=== PATIENT | male | born 1985 | race Caucasian/White ===

== ENCOUNTER 2018-04-15 12:34 | Inpatient (IN) ==
[2018-04-15] MEDS ORDERED: Naloxone 0.4 MG/ML INJ IVP PRN (15:34)
--- NOTE | 2018-04-15 15:43 | Cardiothoracic H&P ---
Date of Encounter: 04/15/18 Time of Encounter: 15:41 Assessment and Plan (1) Acute pneumothorax Current Visit: Yes Status: Acute I have discussed the plan of care with the tranfering physician. I have reviewed the plan of care with the patient. Will obtain labs. Addressed chest tube management. History of Present Illness Chief complaint: SOB HPI: Mr. Granger is a 32 year old male who is being transfered to [facility] for recurrent pneumothorax in the last week associated with SOB and chest pain that have been resolved with chest tube placement. Past Med Surg Social Fam HX - Past Medical History Additional medical history: left pneumothorax - Past Surgical History Surgical History: no surgical history - Social History Smoking Status: Former smoker Packs per day: 13 pack years Alcohol use: occasionally Drug use: none All Systems Review: The remainder of the systems were reviewed and are negative - Respiratory Respiratory: cough, dyspnea - Musculoskeletal Musculoskeletal: other (mm pain at chest tube insertion site ) Physical Examination Vital Signs, Last 4 Hours Temp Pulse Resp BP Pulse Ox 04/15/18 15:15 98.1 F 85 15 126/79 98 General: Conversant, No Apparent Distress HEENT: Atraumatic, Normocephaly, Trachea midline Cardiac: Reg Rate and Rhythm, Normal S1 and S2, No Murmur Lungs: Normal Breath Sounds Neuro: Alert and responsive, No focal deficits noted, Cranial nerves intact Vascular: Normal capillary refill Abdomen: Soft, Non-tender Skin: No rashes noted on visualized skin, Other (several tattoos) Extremities: No Clubbing, No Cyanosis, No Edema, Normal Pulses
[2018-04-15] MEDS: *HR* HYDROcodone/Acet 5/325 mg TABLET PO PRN ×2 (16:54→21:46)
[2018-04-15 17:56] LABS: Basophils % 0.5 %; Eosinophils # 0.3 K/mcL (0.0-0.6); Eosinophils % 4.2 %; Hematocrit 40.8 % (37.5-50.1); Hemoglobin 13.8 g/dL (12.9-16.9); Immature Granulocytes % 0.2 % (0-4); Lymphocytes # 1.8 K/mcL (0.6-4.6); Lymphocytes % 22.3 %; Mean Corpuscular HGB Conc 33.8 g/dL (31.6-35.5); Mean Corpuscular Hemoglobin 30.1 pg (28.0-33.3); Mean Corpuscular Volume 89.1 fL (83.0-100.0); Mean Platelet Volume 10.4 fL (9.4-12.4); Monocytes # 0.4 K/mcL (0.0-1.3); Monocytes % 4.4 %; Neutrophils # 5.6 K/mcL (1.6-8.9); Platelet Count 255 K/mcL (140-400); Red Blood Count 4.58 M/mcL (4.19-5.50); Segmented Neutrophils % 68.4 %
[2018-04-15 18:04] LABS: Magnesium 1.9 mg/dL (1.6-2.6); Phosphorous 4.6 mg/dL (2.7-4.5)
[2018-04-15 18:05] LABS: BUN/Creatinine Ratio 9 (6-26); Blood Urea Nitrogen 10 mg/dL (6-20); Calcium 9.5 mg/dL (8.6-10.3); Carbon Dioxide 31 mEq/L (23-29); Chloride 99 mEq/L (98-107); Glucose 191 mg/dL (70-105); Osmolality,Calculated 286 (280-300); Potassium 4.1 mEq/L (3.5-5.1); Sodium 136 mEq/L (136-145); eGFR For Non-African Americans > 60 (> 60)
[2018-04-15] MEDS: Gabapentin 300 MG CAPSULE PO SCH (20:22)
[2018-04-16] MEDS: *HR* HYDROcodone/Acet 5/325 mg TABLET PO PRN ×4 (05:41→21:19)
--- NOTE | 2018-04-16 07:50 | Cardiothoracic Progress Note ---
Date of Encounter: 04/16/18 Time of Encounter: 07:48 - Assessment and plan (1) Acute pneumothorax Current Visit: Yes Status: Acute I have completed preop orders. - Subjective Interval history: no new issues overnight Vital Signs, Last 4 Hours Temp Pulse Resp BP Pulse Ox 04/16/18 07:22 96.2 F L 77 19 118/90 98 Clinical Data, last 8 Hours Output, Chest Tube Drainage 0 Amount [Left Anterior Chest #1 ] Output, Chest Tube Drainage 0 Amount [Left Anterior Chest #1 ] Output, Urine Amount 0 Output, Urine Amount 0 Weight 04/14/18 04/15/18 04/16/18 23:59 23:59 23:59 Weight 69.1 kg 70.3 kg - Physical Examination General: Conversant, No Apparent Distress Cardiac: Reg Rate and Rhythm, Normal S1 and S2, No Murmur Incision: No signs of infection, Dry/intact dressing Lungs: Decreased breath sounds Neuro: Alert and responsive, No focal deficits noted Abdomen: Soft, Non-tender - Labs 04/15/18 17:33 04/15/18 17:33 Lab Results, Last 24 hours 04/15/18 04/15/18 04/15/18 17:33 17:33 17:33 WBC 8.1 Hgb 13.8 Hct 40.8 Plt Count 255 Sodium 136 Potassium 4.1 Chloride 99 Carbon Dioxide 31 H BUN 10 Creatinine 1.07 Glucose 191 H Calcium 9.5 Magnesium 1.9 Consult Discharge Plan - Plan Referrals: NONE,PCP [Primary Care Provider] -
[2018-04-16] MEDS: Gabapentin 300 MG CAPSULE PO SCH ×3 (08:57→21:19)
--- NOTE | 2018-04-16 19:16 | Anesthesia Evaluation PreOp ---
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 BALANCE History: Denies Any Significant HX Other Medical History: Denies Any Significant HX Anesthesia History: No Prior Anesthetic Complications, Past Anesthesia (none) Alcohol Use: occasionally Drug use: none Medications and Allergies No Known Home Drugs 04/16/18 [History] Allergy/AdvReac Type Severity Reaction Status Date / Time bee venom protein (honey bee) Allergy throat Verified 04/15/18 16:48 swelling - Meds/Allergy Pre-op Review Medications Reviewed: Yes Allergies Reviewed: Yes Beta Blockers on Current Med List: No Anesthesia Results - Labs 04/15/18 17:33 04/15/18 17:33 Anesthesia Exam Vital Signs/O2 Sat, Most Current Temp Pulse Resp BP Pulse Ox 98.9 F 83 19 109/61 98 04/16/18 15:59 04/16/18 15:59 04/16/18 15:59 04/16/18 15:59 04/16/18 15:59 NPO (# of Hours): After Midnight Pain Scale: 0 Pain Scale Used: Numeric (1 - 10) - HEENT Pupil (Motor): Pupils equal, EOMI Mallampati: II Teeth: Poor dentition Oral Opening: Greater than 3 - POISER BALANCE LOC: Oriented POISER BALANCE Motor: Normal RUE, Normal LUE, Normal RLE, Normal LLE, Normal Face POISER BALANCE Sensory: Normal: RUE, LUE, RLE, LLE, Face - Cardiac Rhythm: Regular Murmur: None JVD: No Carotid Bruit: No - Pulmonary Breath Sounds: bilateral Clear Respiratory Effort: Symmetrical Anesthesia Assess/Plan ASA Score: 2 Level of consciousness: Cooperative Anesthetic Plan: General, Epidural Autologous Blood: Yes Monitoring Plan: Standard Monitors Recovery Plan: PACU
[2018-04-17] MEDS: *HR* HYDROcodone/Acet 5/325 mg TABLET PO PRN ×3 (04:39→23:17)
[2018-04-17 05:08] LABS: Basophils # 0.1 K/mcL (0.0-0.2); Basophils % 0.8 %; Eosinophils # 0.4 K/mcL (0.0-0.6); Hematocrit 42.7 % (37.5-50.1); Hemoglobin 14.4 g/dL (12.9-16.9); Immature Granulocytes % 0.2 % (0-4); Lymphocytes % 30.9 %; Mean Corpuscular HGB Conc 33.7 g/dL (31.6-35.5); Mean Corpuscular Hemoglobin 30.1 pg (28.0-33.3); Mean Corpuscular Volume 89.3 fL (83.0-100.0); Mean Platelet Volume 10.3 fL (9.4-12.4); Monocytes # 0.6 K/mcL (0.0-1.3); Monocytes % 8.8 %; Neutrophils # 3.5 K/mcL (1.6-8.9); Platelet Count 255 K/mcL (140-400); Red Blood Count 4.78 M/mcL (4.19-5.50); Segmented Neutrophils % 53.3 %
[2018-04-17 05:26] LABS: BUN/Creatinine Ratio 14 (6-26); Blood Urea Nitrogen 13 mg/dL (6-20); Calcium 9.6 mg/dL (8.6-10.3); Carbon Dioxide 29 mEq/L (23-29); Chloride 103 mEq/L (98-107); Glucose 100 mg/dL (70-105); Osmolality,Calculated 288 (280-300); Potassium 4.3 mEq/L (3.5-5.1); Sodium 139 mEq/L (136-145); eGFR For Non-African Americans > 60 (> 60)
[2018-04-17] MEDS: Gabapentin 300 MG CAPSULE PO SCH ×3 (08:46→23:18)
[2018-04-17 10:14] LABS: Basophils % 0.7 %; Eosinophils # 0.3 K/mcL (0.0-0.6); Hemoglobin 14.3 g/dL (12.9-16.9); Immature Granulocytes % 0.2 % (0-4); Lymphocytes # 1.5 K/mcL (0.6-4.6); Lymphocytes % 27.2 %; Mean Corpuscular HGB Conc 33.3 g/dL (31.6-35.5); Mean Corpuscular Hemoglobin 29.7 pg (28.0-33.3); Mean Corpuscular Volume 89.2 fL (83.0-100.0); Mean Platelet Volume 9.9 fL (9.4-12.4); Monocytes # 0.4 K/mcL (0.0-1.3); Monocytes % 7.5 %; Neutrophils # 3.2 K/mcL (1.6-8.9); Platelet Count 252 K/mcL (140-400); Red Blood Count 4.82 M/mcL (4.19-5.50); Segmented Neutrophils % 58.4 %
[2018-04-17] MEDS ORDERED: *HR* Propofol 200 MG/20 ML VIAL IVP ONE (11:10)
[2018-04-17] MEDS ORDERED: *HR* Midazolam HCl 2 MG/2 ML VIAL ONE (11:10)
[2018-04-17] MEDS ORDERED: *HR* FentaNYL (PF) 100 MCG/2 ML VIAL ONE ×3 (11:10→14:08)
[2018-04-17] MEDS ORDERED: *HR* Rocuronium Bromide 50 MG/5 ML VIAL ONE (11:14)
[2018-04-17] MEDS ORDERED: Lidocaine -MPF 2% 2 ML VIAL ONE (11:14)
[2018-04-17] MEDS ORDERED: Lidocaine -MPF 4% 5 ML AMPUL ONE (11:14)
[2018-04-17] MEDS ORDERED: Ondansetron 4 MG/2 ML VIAL ONE (11:14)
[2018-04-17] MEDS ORDERED: SODIUM CHLORIDE 0.9% IX ONE (11:30)
[2018-04-17] MEDS ORDERED: DOXYCYCLINE IX ONE ×2 (11:30)
[2018-04-17] MEDS ORDERED: SODIUM CHLORIDE IX ONE (11:30)
[2018-04-17] MEDS ORDERED: TALC (Sterile Pwd) 4 GM VIAL IX ONE (11:30)
[2018-04-17] MEDS ORDERED: Acetaminophen IV 1,000 MG/100 ML INFUS..BTL ONE (12:40)
[2018-04-17] MEDS ORDERED: EPHEDrine 50 MG/ML VIAL ONE (13:12)
[2018-04-17] MEDS ORDERED: Neostigmine Methylsulfate 3 MG/3 ML SYRINGE ONE (13:21)
--- NOTE | 2018-04-17 13:53 | Operative Note ---
Date of procedure: 04/17/18 Pre-op diagnosis: pneumothorax Post-op diagnosis: same Procedure: bronchoscopy, left vats wedge resection upper and lower lobes, mechanical and 800mg doxy pleurodesis Anesthesia: RONNIE Surgeon: Marvin Pepper Was there an store administrative assistant present: No Estimated blood loss (cc): 5 Specimen: wedge resection upper and lower lobes Condition: stable Disposition: PACU Procedure in Detail: Patient was brought to the operating room and placed on the operating room table in the supine position with perioperative antibiotics and compressive devices on bilateral lower extremities patient underwent general anesthesia flexible bronchoscopy demonstrated normal pink mucosa throughout the tracheobronchial tree Seldinger technique was used to place the double-lumen endotracheal tube in the left mainstem bronchus patient was then positioned on the operating room table in the right lateral decubitus position with care to pad all pressure points the pigtail catheter was removed he was prepped draped in the usual sterile fashion 3 thoracoscopy ports were placed wedge resections of the left upper lobe and left lower lobe performed intercostal nerve blocks performed. A mechanical pleurodesis and then 800 mg doxycycline chemical pleurodesis performed 28-Indonesian chest tube placed through the most anterior thoracoscopy incision and secured in place with a #2-0 Ethibond suture the remaining incisions were closed with 0 Vicryl and 4-0 Monocryl subcuticular stitches. Dressing consisting of Steri-Strips and sterile gauze. Patient was extubated and taken to the recovery room breathing spontaneously and hemodynamically stable
[2018-04-17] MEDS: *HR* FentaNYL (PF) 100 MCG/2 ML VIAL IVP PRN ×2 (14:09→14:17)
[2018-04-17] MEDS ORDERED: *HR* OxyCODONE Immed Rel 5 MG TABLET PO PRN (14:10)
[2018-04-17] MEDS ORDERED: *HR* Promethazine 25 MG/ML VIAL IVP PRN (14:10)
[2018-04-17] MEDS ORDERED: *HR* HYDROmorphone (PF) 1 MG/ML SYRINGE IVP PRN (14:10)
[2018-04-17] MEDS ORDERED: Ondansetron 4 MG/2 ML VIAL IVP ONE (14:10)
[2018-04-17] MEDS ORDERED: Ketorolac 30 MG/ML VIAL IVP ONE (14:16)
--- NOTE | 2018-04-17 14:33 | Anesthesia Evaluation Post Op ---
Date of Encounter: 04/17/18 Time of Encounter: 14:32 - Vital Signs Vital Signs: Vital Signs/O2 Sat/Glucose, Most Recent Temp Pulse Resp BP Pulse Ox 99.5 F 101 18 154/99 96 04/17/18 14:24 04/17/18 14:24 04/17/18 14:24 04/17/18 14:24 04/17/18 14:24 - Lungs Lungs: Clear Ascult./Percussion - Airway Airway: Non-obstructed - Cardiovascular Regular Rate - Mental Status Mental Status: Alert & Oriented, Answers Appropriately - Pain Pain Scale: 2 - Nausea Vomiting Nausea Vomiting: Not Present - Hydration Hydration: NPO - Discharge PostOp Status: Transfer Patient to floor
[2018-04-17] MEDS ORDERED: *HR* Succinylcholine 200 MG/10 ML VIAL IVP ONE (17:08)
[2018-04-17] MEDS: Ketorolac 15 MG/ML VIAL IVP SCH (19:11)
[2018-04-18] MEDS: Ketorolac 15 MG/ML VIAL IVP SCH ×4 (01:50→19:47)
[2018-04-18] MEDS: *HR* HYDROcodone/Acet 5/325 mg TABLET PO PRN ×3 (09:23→23:11)
[2018-04-18] MEDS: Gabapentin 300 MG CAPSULE PO SCH ×3 (09:23→21:09)
--- NOTE | 2018-04-18 09:44 | Cardiothoracic Progress Note ---
Date of Encounter: 04/18/18 Time of Encounter: 09:42 - Assessment and plan (1) Acute pneumothorax Current Visit: Yes Status: Acute clamp the chest tube at midnight tonight. stop oxygen. encourage ambulation.. - Subjective Interval history: postoperative day 1 Vital Signs, Last 4 Hours Temp Pulse Resp BP Pulse Ox 04/18/18 07:26 98.8 F 92 16 135/88 98 Oxgyen Flow Rate Oxygen Flow Rate (LPM) 2.5 Clinical Data, last 8 Hours Output, Chest Tube Drainage 0 Amount [Left Mid-Axillary Chest #1] Output, Urine Amount 0 Output, Urine Amount 0 Weight 04/16/18 04/17/18 04/18/18 23:59 23:59 23:59 Weight 70.3 kg 69.4 kg 70.1 kg - Physical Examination General: Conversant, No Apparent Distress HEENT: Atraumatic Cardiac: Reg Rate and Rhythm, Normal S1 and S2, No Murmur Chest tubes: Other (no leak with cough ) Lungs: Decreased breath sounds Neuro: Alert and responsive, No focal deficits noted Abdomen: Soft, Non-tender - Labs 04/17/18 09:56 04/17/18 04:24 Lab Results, Last 24 hours 04/17/18 09:56 WBC 5.5 Hgb 14.3 Hct 43.0 Plt Count 252 - Imaging Chest Xray: image reviewed Consult Discharge Plan - Plan Referrals: NONE,PCP [Primary Care Provider] -
[2018-04-19] MEDS: Ketorolac 15 MG/ML VIAL IVP SCH ×3 (01:05→12:26)
--- NOTE | 2018-04-19 09:04 | Cardiothoracic Progress Note ---
Date of Encounter: 04/19/18 Time of Encounter: 09:02 - Assessment and plan (1) Acute pneumothorax Current Visit: Yes Status: Acute The assessment and plan as outlined above was discussed with the patient and/or family members who expressed understanding and agreement. All questions were answered. The chest tube was removed. Chest x-ray done after chest tube removal revealed what I felt to be a moderate pneumothorax. His O2 saturation is 96 on room air and he is not dyspneic and has no chest pain. We will check another chest x-ray at noon and if this looks good may discharge him today. I told him to return to the emergency room for any chest pain or shortness of breath. - Subjective Interval history: The patient has no complaints and is anxious to go home. The chest tube has been clamped since midnight and his O2 saturation is 97% on room air. Vital Signs, Last 4 Hours Temp Pulse Resp BP Pulse Ox 04/19/18 07:18 98.1 F 92 18 130/81 96 04/19/18 06:05 121/72 Oxgyen Flow Rate Oxygen Flow Rate (LPM) 2.5 Clinical Data, last 8 Hours Output, Urine Amount 1,000 Weight 04/17/18 04/18/18 04/19/18 23:59 23:59 23:59 Weight 69.4 kg 70.1 kg 70.5 kg Lungs are clear to percussion and auscultation. The chest tube has no air leak and has minimal drainage with the clamp removed. All incisions are healing well without signs of infection. - Labs 04/17/18 09:56 04/17/18 04:24 Consult Discharge Plan - Plan Referrals: NONE,PCP [Primary Care Provider] -
[2018-04-19] MEDS: Gabapentin 300 MG CAPSULE PO SCH (09:28)
[2018-04-19 11:39] VITALS: BP 119/84
--- NOTE | 2018-04-19 12:36 | Event Note ---
Date of Encounter: 04/19/18 Time of Encounter: 12:35 The patient had a repeat chest x-ray which reveals a moderate pneumothorax which has been stable since the prior chest x-ray. His O2 saturation is 97 on room air and he is not dyspneic. Therefore, I will discharge him. He was told to return to emergency room if he develops shortness of breath or chest pain. We will see him back in the office on April 23 with a chest x-ray PA and lateral prior to arrival.
--- NOTE | 2018-04-19 12:42 | Discharge Summary ---
Orders not resulted at time of discharge: Pending orders 04/17/18 13:31 Surgical Pathology [PTH] Routine 04/20/18 08:00 Chest Xray, 1 view [XR chest 1V] [XR] DAILY Date of Encounter: 04/19/18 Time of Encounter: 12:39 - Discharge Diagnosis (1) Acute pneumothorax Priority: Primary Status: Acute - Hospital Course Hospital course: Mr. Granger is a 32 year old male The patient is a 32-year-old gentleman who had a chest tube placed for recurrent left pneumothorax. He had been a smoker, but had quit in the past. On 04/17/2018, Dr. Pepper took the patient to the operating room for a left VATS wedge resection of the left upper and left lower lobes and pleurodesis with doxycycline. The patient tolerated this procedure well. On April 19, his chest tube had no air leak and minimal drainage and was removed. Chest x-ray done after this revealed a moderate left pneumothorax. We waited several hours and a repeat chest x-ray revealed that this was stable. His O2 saturation was 97 on room air and he was not dyspneic. He was discharged to home. At the time of discharge, he was afebrile. Lungs were clear to percussion and auscultation. All incisions were healing well without signs of infection and his O2 saturation was 97% on room air. The only medication was [place] for chest pain. I did check the [place] automated Rx reporting system. He was postoperative and was given a 5 day supply. Appropriate precautions were given. He was to return to his previous and regular diet. He was told to stay off work until he sees Dr. Pepper in the office. He is to return to our office on 04/23/2018 with a chest x-ray PA and lateral prior to arrival. He was to go to the emergency room sooner for any chest pain or shortness of breath. - Time Spent with Patient Total time spent providing and/or coordinating discharge services: - Discharge Medications Prescriptions: HYDROcodone/Acet 5/325 mg [[place] 5-325 mg] 1 tab PO Q4HR PRN 5 Days #20 tablet PRN Reason: Pain Home Medications: HYDROcodone/Acet 5/325 mg [[place] 5-325 mg] 1 tab PO Q4HR PRN 5 Days #20 tablet 1 06/20/17 [Rx] Allergies/Adverse Reactions: Allergy/AdvReac Type Severity Reaction Status Date / Time bee venom protein (honey bee) Allergy throat Verified 04/15/18 16:48 swelling Date of admission: 04/15/18 14:55 Primary care physician: PCP NONE Consults: 04/15/18 15:48 Consult to [place] [CONS] Routine Reason for SW Consult: financial support Procedure(s) Performed: 04/17/2018. Left thoracoscopy with wedge excision of left upper and left lower lobes and pleurodesis with doxycycline. Discharging clinician: Jas Stoddard Anticipated date of discharge: 04/19/18 Physical Examination Vital Signs, Last 4 Hours Temp Pulse Resp BP Pulse Ox 04/19/18 11:34 97.8 F 102 16 119/84 97 - Patient Status Disposition: Home, Self-Care Condition: Good Functional capacity at discharge: independent ambulation Overall status at discharge: patient is progressing back to baseline - Discharge Instructions Follow Up With: NONE,PCP [Primary Care Provider] -
== END 2018-04-19 13:51 | disposition home or self-care (01) | DRG 165 ==
LOC: 2NENU 14:55
PROVIDERS: ADMIT Thoracic Surgery (Cardiothoracic Vascular Surgery); ATTEND Thoracic Surgery (Cardiothoracic Vascular Surgery)

== ENCOUNTER 2018-12-25 13:00 | Inpatient (IN) ==
--- NOTE | 2018-12-25 08:02 | Anesthesia Evaluation PreOp ---
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 Any Significant HX Other Medical History: Denies Any Significant HX Anesthesia History: No Prior Anesthetic Complications, Past Anesthesia (L thoracoscopy) Alcohol Use: occasionally Drug use: none Medications and Allergies Allergy/AdvReac Type Severity Reaction Status Date / Time bee venom protein (honey bee) Allergy throat Verified 12/25/18 13:25 swelling - Meds/Allergy Pre-op Review Medications Reviewed: Yes Allergies Reviewed: Yes Beta Blockers on Current Med List: No Anesthesia Results - Labs Laboratory Tests 12/24/18 12/24/18 12/24/18 13:09 13:09 13:09 Hgb 14.5 Hct 43.2 Plt Count 283 PT 12.1 APTT 34.9 Sodium 136 Potassium 4.2 Chloride 100 Carbon Dioxide 30 H BUN 9 Creatinine 1.02 Anesthesia Exam O2 Sat Height 1.75 m Weight 69.853 kg O2 Sat by Pulse Oximetry 98 Vital Signs Temp Pulse Resp BP Pulse Ox 98.3 F 89 18 117/79 98 12/25/18 13:14 12/25/18 13:14 12/25/18 13:14 12/25/18 13:14 12/25/18 13:14 - HEENT Pupil (Motor): Pupils equal, EOMI Mallampati: II Teeth: Missing, Poor dentition (nothing loose at this time) Oral Opening: Greater than 3 - INDUSTRIAL TECHNOLOGY TEACHER LOC: Oriented INDUSTRIAL TECHNOLOGY TEACHER Motor: Normal RUE, Normal LUE, Normal RLE, Normal LLE, Normal Face INDUSTRIAL TECHNOLOGY TEACHER Sensory: Normal: RUE, LUE, RLE, LLE, Face - Cardiac Rhythm: Regular Murmur: None JVD: No - Pulmonary Breath Sounds: bilateral Clear Respiratory Effort: Symmetrical Anesthesia Assess/Plan ASA Score: 2 Level of consciousness: Cooperative, Oriented Monitoring Plan: Standard Monitors Recovery Plan: PACU
[~2018-12-25 13:00] MED LIST: Talc (sterile) 4 GM, 0.9 % Sodium Chloride 50 ML, Syringe CATH TIP 1 EACH IX ONE
[2018-12-25] MEDS ORDERED: CeFAZolin Syr 2,000MG/20 ML 2,000 MG/20 ML SYRINGE IVPB ONE (13:17)
[2018-12-25] MEDS ORDERED: Ringers Solution, Lactated 1,000 ML IVC SCH (13:30)
[2018-12-25] MEDS ORDERED: Albuterol 2.5 MG/3 ML NEBULIZER IH ONE (13:47)
[2018-12-25] MEDS ORDERED: Ondansetron ODT 4 MG TAB.RAPDIS SL ONE (13:55)
[2018-12-25] MEDS ORDERED: diazePAM 5 MG TABLET PO ONE (13:55)
[2018-12-25] MEDS ORDERED: Acetaminophen IV 1,000 MG/100 ML INFUS..BTL IVPB ONE (13:56)
[2018-12-25] MEDS ORDERED: *HR* OxyCODONE Immed Rel 5 MG TABLET PO PRN (13:56)
[2018-12-25] MEDS ORDERED: *HR* Meperidine 25 MG/ML SYRINGE IVP PRN (13:56)
[2018-12-25] MEDS ORDERED: *HR* Promethazine 25 MG/ML VIAL IVP PRN (13:56)
--- NOTE | 2018-12-25 13:58 | History & Physical Report ---
Date of Encounter: 12/25/18 Time of Encounter: 13:58 24 Hour HP Update - Instructions Instructions: If the History and Physical is less than 30 days old and was completed prior to A.M. admission and or procedure and has NOT been updated on calendar day of procedure please complete this update prior to performing procedure. - Update Patient reports changes in Medical Condition: No Changes in examination, assessment, or condition: No Changes in Medication: No Preop tests/diagnostics Reviewed: Yes Pre-Op MRSA Screen: Negative Surgery Remains Indicated: Yes Consent for Planned Operative Procedure(s) Verified: Yes - Pre-Operative Checklist Preoperative Checklist Indicated: Yes Prophylactic Antibiotic Ordered: Yes Home Medications Include Beta Latisha: No Beta Latisha Taken Today (Day of Surgery): No Beta Latisha Taken Yesterday (Day Prior to Surgery): No Is VTE Prophylaxis Indicated?: Yes
[2018-12-25] MEDS ORDERED: CATH TIP IX ONE (14:00)
[2018-12-25] MEDS ORDERED: DOXYCYCLINE IX ONE (14:00)
[2018-12-25] MEDS ORDERED: SODIUM CHLORIDE IX ONE (14:00)
[2018-12-25] MEDS ORDERED: *HR* HYDROMORPHONE 2 MG/ML VIAL ONE (14:02)
[2018-12-25] MEDS ORDERED: *HR* Midazolam HCl 2 MG/2 ML VIAL ONE (14:02)
[2018-12-25] MEDS ORDERED: Lidocaine HCL 4 ML Topical Solution (Laryng-O-Jet Kit Sterile Pak) TP ONE (14:06)
[2018-12-25] MEDS ORDERED: *HR* Propofol 200 MG/20 ML VIAL IVP ONE (14:10)
[2018-12-25] MEDS ORDERED: *HR* FentaNYL (PF) 100 MCG/2 ML VIAL ONE (14:10)
[2018-12-25] MEDS ORDERED: Dexamethasone 4 MG/ML VIAL ONE (14:13)
[2018-12-25] MEDS ORDERED: Lidocaine -MPF 2% 2 ML VIAL ONE (14:13)
[2018-12-25] MEDS ORDERED: *HR* Succinylcholine 200 MG/10 ML VIAL IVP ONE (14:13)
[2018-12-25] MEDS ORDERED: *HR* Rocuronium Bromide 50 MG/5 ML VIAL ONE (14:13)
[2018-12-25] MEDS ORDERED: Ondansetron 4 MG/2 ML VIAL ONE (15:39)
--- NOTE | 2018-12-25 16:05 | Operative Note ---
Date of procedure: 12/25/18 Pre-op diagnosis: j93.83 Post-op diagnosis: same Procedure: bronchoscopy, robotic vats wedge resection and pleurodesis Anesthesia: GETA Local Anesthetics: 0.5% Sensorcaine HCL SubQ (cc) Surgeon: Marvin Ppeper Was there an doctor assistant present: No Estimated blood loss (cc): 2 Specimen: wedge resection upper lobe Condition: stable Disposition: PACU Procedure in Detail: Patient was brought to the operating room and placed on the operating table in the supine position. After undergoing general anesthesia with sequential compressive devices on bilateral lower extremities and perioperative antibiotics, staging bronchoscopy was performed for multiple bilateral pneumothoraces at the patient has had in the past as well as currently. There was no trauma to the main tracheobronchial tree mainstem or subcutaneous lobar bronchi. The previous chest tube placed by an outside facility was removed. The patient was prepped and draped in the usual sterile fashion. Thoracoscopy ports were placed. The da Lisa robot was docked. 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 A chemical pleurodesis with doxycycline was performed. Nerve blocks performed. 28-Wolof chest tube placed through the most anterior thoracoscopy incision. It was secured into place with a 2 Ethibond suture. The da Lisa robot was de- docked. The remaining incisions closed with 0 Vicryl and a 4-0 Monocryl subcuticular stitch with dressings consisting of Steri-Strips and sterile gauze. Patient was extubated and taken to the recovery room.
[2018-12-25] MEDS: *HR* HYDROmorphone (PF) 1 MG/ML SYRINGE IVP PRN ×4 (16:15→16:40)
[2018-12-25] MEDS ORDERED: Naloxone 0.4 MG/ML INJ IVP PRN (17:18)
[2018-12-25] MEDS ORDERED: Ondansetron 4 MG/2 ML VIAL IVP PRN (17:18)
[2018-12-25] MEDS: Ipratropium/Albuterol Neb 3 ML IH SCH ×2 (18:05→20:27)
[2018-12-25] MEDS: 0.9 % Sodium Chloride 1,000 ML IVC SCH (18:25)
[2018-12-25] MEDS: Ketorolac 15 MG/ML VIAL IVP SCH ×2 (18:25→23:56)
[2018-12-25] MEDS: Sennosides/Docusate Sodium TABLET PO SCH (20:18)
[2018-12-25] MEDS: Gabapentin 300 MG CAPSULE PO SCH (20:18)
[2018-12-25] MEDS: Famotidine 20 MG TABLET PO SCH (20:18)
[2018-12-25] MEDS: *HR* Heparin 5,000 UNIT/ML VIAL SQ SCH (20:18)
[2018-12-26] MEDS: Ipratropium/Albuterol Neb 3 ML IH SCH ×7 (00:29→23:49)
[2018-12-26] MEDS: *HR* Heparin 5,000 UNIT/ML VIAL SQ SCH ×3 (04:42→21:15)
[2018-12-26] MEDS: *HR* HYDROcodone/Acet 5/325 mg TABLET PO PRN ×2 (04:42→07:54)
[2018-12-26] MEDS: Ketorolac 15 MG/ML VIAL IVP SCH ×3 (05:33→18:16)
[2018-12-26 05:36] LABS: Hematocrit 42.7 % (37.5-50.1); Hemoglobin 14.3 g/dL (12.9-16.9); Mean Corpuscular HGB Conc 33.5 g/dL (31.6-35.5); Mean Corpuscular Hemoglobin 30.2 pg (28.0-33.3); Mean Corpuscular Volume 90.3 fL (83.0-100.0); Mean Platelet Volume 10.1 fL (9.4-12.4); Platelet Count 319 K/mcL (140-400); Red Blood Count 4.73 M/mcL (4.19-5.50); Red Cell Distribution Width 12.8 % (11.5-14.5); White Blood Count 12.8 K/mcL (4.3-11.1)
[2018-12-26 05:56] LABS: BUN/Creatinine Ratio 15 (6-26); Blood Urea Nitrogen 11 mg/dL (6-20); Calcium 9.2 mg/dL (8.6-10.3); Carbon Dioxide 24 mEq/L (23-29); Chloride 102 mEq/L (98-107); Glucose 144 mg/dL (70-105); Osmolality,Calculated 286 (280-300); Potassium 4.7 mEq/L (3.5-5.1); Sodium 137 mEq/L (136-145); eGFR For African Americans > 60 (> 60); eGFR For Non-African Americans > 60 (> 60)
[2018-12-26] MEDS: Gabapentin 300 MG CAPSULE PO SCH ×3 (07:54→21:15)
[2018-12-26] MEDS: Sennosides/Docusate Sodium TABLET PO SCH ×2 (07:54→21:15)
[2018-12-26] MEDS: Famotidine 20 MG TABLET PO SCH ×2 (07:54→21:15)
[2018-12-26] MEDS: 0.9 % Sodium Chloride 1,000 ML IVC SCH (07:55)
--- NOTE | 2018-12-26 08:46 | Cardiothoracic Progress Note ---
Date of Encounter: 12/26/18 Time of Encounter: 08:45 - Assessment and plan (1) Acute pneumothorax Current Visit: No Status: Acute The assessment and plan as outlined above was discussed with the patient and/or family members who expressed understanding and agreement. All questions were answered. rounded wiht nurse. stop ivf. increase chest tube suction . no other changes. Vital Signs, Last 4 Hours Temp Pulse Resp BP Pulse Ox 12/26/18 07:27 98.2 F 95 22 126/79 100 12/26/18 07:26 17 97 Oxgyen Flow Rate Oxygen Flow Rate (LPM) 2 Clinical Data, last 8 Hours Output, Chest Tube Drainage 4 Amount [Left Anterior Chest #1 ] Weight 12/24/18 12/25/18 12/26/18 23:59 23:59 23:59 Weight 69.853 kg 70.7 kg - Physical Examination General: Conversant, No Apparent Distress, Well developed, Well nourished HEENT: Atraumatic, Normocephaly Cardiac: Reg Rate and Rhythm, Normal S1 and S2 Incision: No signs of infection, Dry/intact dressing Chest tubes: Minimal drainage, Air leak Lungs: Normal Breath Sounds Neuro: Alert and responsive, No focal deficits noted, Cranial nerves intact - Labs 12/26/18 05:01 12/26/18 05:01 Lab Results, Last 24 hours 12/26/18 12/26/18 05:01 05:01 WBC 12.8 H Hgb 14.3 Hct 42.7 Plt Count 319 Sodium 137 Potassium 4.7 Chloride 102 Carbon Dioxide 24 BUN 11 Creatinine 0.74 Glucose 144 H Calcium 9.2 - Imaging Chest Xray: image reviewed Consult Discharge Plan - Plan Referrals: Marvin Pepper MD [Partnered Physician] - NONE,PCP [Primary Care Provider] - (Patient doesn't want me to find him a PCP)
[2018-12-27] MEDS: Ketorolac 15 MG/ML VIAL IVP SCH ×5 (00:20→22:54)
[2018-12-27] MEDS: Ipratropium/Albuterol Neb 3 ML IH SCH ×5 (04:13→20:23)
[2018-12-27] MEDS: *HR* Heparin 5,000 UNIT/ML VIAL SQ SCH ×3 (04:51→20:48)
[2018-12-27] MEDS: *HR* HYDROcodone/Acet 5/325 mg TABLET PO PRN ×5 (05:38→22:54)
--- NOTE | 2018-12-27 08:21 | Cardiothoracic Progress Note ---
Date of Encounter: 12/27/18 Time of Encounter: 08:05 - Assessment and plan (1) Acute pneumothorax Current Visit: No Status: Acute The patient is recovering well from his right robotic apical bleb resection and chemical pleurodesis. He has a persistent air leak on suction. The chest x-ray shows improvement in his lung aeration and a decrease in the right apical pneumothorax. Chest tube will remain on suction; however, the patient may ambulate in the hallways off suction 3 times per day. The assessment and plan as outlined above was discussed with the patient and/or family members who expressed understanding and agreement. All questions were answered. - Subjective Procedure(s) Performed: POD#2 S/P Right robotic apical bleb resection and chemical pleurodesis Interval history: The patient remained hemodynamic stable overnight. He is resting comfortably in his hospital bed. He has no complaints. Vital Signs, Last 4 Hours Temp Pulse Resp BP Pulse Ox 12/27/18 07:31 18 97 12/27/18 07:26 98.0 F 90 18 116/80 97 Oxgyen Flow Rate Oxygen Flow Rate (LPM) 2 Clinical Data, last 8 Hours Output, Chest Tube Drainage 50 Amount [Left Anterior Chest #1 ] Output, Chest Tube Drainage 170 Amount [Left Anterior Chest #1 ] Weight 12/25/18 12/26/18 12/27/18 23:59 23:59 23:59 Weight 69.853 kg 70.7 kg 71.7 kg - Physical Examination General: Conversant, No Apparent Distress Cardiac: Reg Rate and Rhythm, Normal S1 and S2, No Murmur Incision: No signs of infection, Dry/intact dressing Chest tubes: Minimal drainage, Air leak Lungs: Normal Breath Sounds, No Wheeze, Rales, Rhonchi Neuro: Alert and responsive, No focal deficits noted Vascular: Normal capillary refill Extremities: No Clubbing, No Cyanosis, No Edema, Normal Pulses - Labs 12/26/18 05:01 12/26/18 05:01 - Imaging Chest Xray: image reviewed (Right apical pneumothorax, decreased.) Consult Discharge Plan - Plan Additional Instructions: Please go to Out Patient testing on 2018 around [id number] to get an x-ray done before you go see Dr. Pepper. The office is sending the order over to out patient testing at the [facility]. Referrals: Marvin Pepper MD [Partnered Physician] - 01/12/19 9:50 am NONE,PCP [Primary Care Provider] - (Patient doesn't want me to find him a PCP)
[2018-12-27] MEDS: Sennosides/Docusate Sodium TABLET PO SCH ×2 (09:38→20:48)
[2018-12-27] MEDS: Gabapentin 300 MG CAPSULE PO SCH ×3 (09:38→20:48)
[2018-12-27] MEDS: Famotidine 20 MG TABLET PO SCH ×2 (09:38→20:48)
[2018-12-28] MEDS: Ipratropium/Albuterol Neb 3 ML IH SCH ×7 (00:13→23:41)
[2018-12-28] MEDS: Ketorolac 15 MG/ML VIAL IVP SCH ×3 (05:42→18:07)
[2018-12-28] MEDS: *HR* Heparin 5,000 UNIT/ML VIAL SQ SCH ×3 (05:42→20:26)
[2018-12-28] MEDS: Sennosides/Docusate Sodium TABLET PO SCH ×2 (08:26→20:23)
[2018-12-28] MEDS: Gabapentin 300 MG CAPSULE PO SCH ×3 (08:26→20:23)
[2018-12-28] MEDS: Famotidine 20 MG TABLET PO SCH ×2 (08:26→20:23)
--- NOTE | 2018-12-28 09:09 | Cardiothoracic Progress Note ---
Date of Encounter: 12/28/18 Time of Encounter: 09:07 - Assessment and plan (1) Acute pneumothorax Current Visit: No Status: Acute The patient is recovering well from his robotic right apical bleb resection and chemical pleurodesis. He has a persistent air leak on suction. The chest x-ray shows improvement in his lung aeration, but a persistent right apical pneumothorax. The chest tube will remain on suction; however, the patient may ambulate in the hallways off suction 3 times per day. The assessment and plan as outlined above was discussed with the patient and/or family members who expressed understanding and agreement. All questions were answered. - Subjective Procedure(s) Performed: POD#3 S/P Right robotic apical bleb resection and chemical pleurodesis Interval history: The patient remained hemodynamically stable overnight. He is resting comfortably in his hospital bed. He was able to ambulate in the hallways yesterday without difficulty. He has no complaints. Vital Signs, Last 4 Hours Temp Pulse Resp BP Pulse Ox 12/28/18 07:36 16 94 12/28/18 07:12 98.2 F 105 18 116/75 96 Oxgyen Flow Rate Oxygen Flow Rate (LPM) 0 Clinical Data, last 8 Hours Output, Chest Tube Drainage 20 Amount [Left Anterior Chest #1 ] Output, Chest Tube Drainage 40 Amount [Left Anterior Chest #1 ] Output, Urine Amount 250 Output, Urine Amount 950 Weight 12/26/18 12/27/18 12/28/18 23:59 23:59 23:59 Weight 70.7 kg 71.7 kg 71.2 kg - Physical Examination General: Conversant, No Apparent Distress Neck: No JVD, Normal carotid pulses Cardiac: Reg Rate and Rhythm, Normal S1 and S2, No Murmur Incision: No signs of infection, Dry/intact dressing Chest tubes: Minimal drainage, Air leak Lungs: Normal Breath Sounds, No Wheeze, Rales, Rhonchi Neuro: Alert and responsive, No focal deficits noted Vascular: Normal capillary refill Extremities: No Clubbing, No Cyanosis, No Edema, Normal Pulses - Labs 12/26/18 05:01 12/26/18 05:01 - Imaging Chest Xray: image reviewed (Right apical pneumothorax, unchanged.) Consult Discharge Plan - Plan Additional Instructions: Please go to Out Patient testing on 2018 around 0850M to get an x-ray done before you go see Dr. Pepper. The office is sending the order over to out patient testing at the main hospital. Referrals: Marvin Pepper MD [Partnered Physician] - 01/12/19 9:50 am NONE,PCP [Primary Care Provider] - (Patient doesn't want me to find him a PCP)
[2018-12-28] MEDS: *HR* HYDROcodone/Acet 5/325 mg TABLET PO PRN (20:23)
[2018-12-29] MEDS: Ketorolac 15 MG/ML VIAL IVP SCH ×4 (00:02→18:07)
[2018-12-29] MEDS: Ipratropium/Albuterol Neb 3 ML IH SCH ×5 (04:39→20:01)
[2018-12-29] MEDS: *HR* Heparin 5,000 UNIT/ML VIAL SQ SCH ×3 (05:36→20:34)
[2018-12-29] MEDS: Gabapentin 300 MG CAPSULE PO SCH ×3 (08:41→20:33)
[2018-12-29] MEDS: *HR* HYDROcodone/Acet 5/325 mg TABLET PO PRN ×2 (08:41→22:12)
[2018-12-29] MEDS: Famotidine 20 MG TABLET PO SCH ×2 (08:41→20:33)
[2018-12-29] MEDS: Sennosides/Docusate Sodium TABLET PO SCH ×2 (08:41→20:33)
--- NOTE | 2018-12-29 08:54 | Cardiothoracic Progress Note ---
Date of Encounter: 12/29/18 Time of Encounter: 08:36 - Assessment and plan (1) Acute pneumothorax Current Visit: No Status: Acute The patient is recovering well from his robotic right apical bleb resection and chemical pleurodesis. He has a persistent air leak on suction. The chest x-ray shows improvement in his lung aeration, but a persistent right apical pneumothorax. The chest tube will remain on suction; however, the patient may ambulate in the hallways off suction 3 times per day. The assessment and plan as outlined above was discussed with the patient and/or family members who expressed understanding and agreement. All questions were answered. - Subjective Procedure(s) Performed: POD#4 S/P Right robotic apical bleb resection and chemical pleurodesis Interval history: The patient remained hemodynamically stable overnight. He is resting comfortably in his hospital bed. He was able to ambulate in the hallways yesterday without difficulty. He has no complaints. Vital Signs, Last 4 Hours Temp Pulse Resp BP Pulse Ox 12/29/18 07:47 98.3 F 89 18 125/67 98 12/29/18 07:37 29 92 12/29/18 05:30 86 Oxgyen Flow Rate Oxygen Flow Rate (LPM) 2 Clinical Data, last 8 Hours Output, Chest Tube Drainage 40 Amount [Left Anterior Chest #1 ] Output, Urine Amount 450 Output, Urine Amount 0 Weight 12/27/18 12/28/18 12/29/18 23:59 23:59 23:59 Weight 71.7 kg 71.2 kg 72.5 kg - Physical Examination General: Conversant, No Apparent Distress Neck: No JVD, Normal carotid pulses Cardiac: Reg Rate and Rhythm, Normal S1 and S2, No Murmur Incision: No signs of infection, Dry/intact dressing Chest tubes: Minimal drainage, Air leak Lungs: Normal Breath Sounds, No Wheeze, Rales, Rhonchi Neuro: Alert and responsive, No focal deficits noted Vascular: Normal capillary refill Extremities: No Clubbing, No Cyanosis, No Edema - Labs 12/26/18 05:01 12/26/18 05:01 - Imaging Chest Xray: image reviewed (Slight increase in right apical pneumothorax.) Consult Discharge Plan - Plan Additional Instructions: Please go to Out Patient testing on 2018 around 0850M to get an x-ray done before you go see Dr. Pepper. The office is sending the order over to out patient testing at the main hospital. Referrals: Marvin Pepper MD [Partnered Physician] - 01/12/19 9:50 am NONE,PCP [Primary Care Provider] - (Patient doesn't want me to find him a PCP)
[2018-12-30] MEDS: Ketorolac 15 MG/ML VIAL IVP SCH ×4 (00:11→16:33)
[2018-12-30] MEDS: Ipratropium/Albuterol Neb 3 ML IH SCH ×7 (00:32→23:44)
[2018-12-30] MEDS: *HR* Heparin 5,000 UNIT/ML VIAL SQ SCH ×3 (05:19→20:59)
[2018-12-30] MEDS: Gabapentin 300 MG CAPSULE PO SCH ×3 (07:24→21:00)
[2018-12-30] MEDS: Sennosides/Docusate Sodium TABLET PO SCH ×2 (07:24→21:00)
[2018-12-30] MEDS: Famotidine 20 MG TABLET PO SCH ×2 (07:24→20:59)
[2018-12-30] MEDS: *HR* HYDROcodone/Acet 5/325 mg TABLET PO PRN ×2 (10:17→20:59)
--- NOTE | 2018-12-30 13:31 | Cardiothoracic Progress Note ---
Date of Encounter: 12/30/18 Time of Encounter: 13:31 - Assessment and plan (1) Acute pneumothorax Current Visit: No Status: Acute The assessment and plan as outlined above was discussed with the patient and/or family members who expressed understanding and agreement. All questions were answered. decrease suction to 20 Vital Signs, Last 4 Hours Temp Pulse Resp BP Pulse Ox 12/30/18 11:47 18 97 12/30/18 11:20 99.3 F 94 18 116/69 96 Oxgyen Flow Rate Oxygen Flow Rate (LPM) 0 Clinical Data, last 8 Hours Output, Chest Tube Drainage 35 Amount [right anterior chest] Output, Chest Tube Drainage 20 Amount [right anterior chest] Output, Urine Amount 400 Output, Urine Amount 550 Output, Urine Amount 500 Weight 12/28/18 12/29/18 12/30/18 23:59 23:59 23:59 Weight 71.2 kg 72.5 kg 73 kg - Physical Examination General: Conversant, No Apparent Distress HEENT: Atraumatic, Normocephaly Neck: No JVD Cardiac: Reg Rate and Rhythm, Normal S1 and S2 Incision: No signs of infection, Dry/intact dressing, Open to air Chest tubes: Minimal drainage, Air leak Lungs: Normal Breath Sounds Neuro: Alert and responsive, No focal deficits noted, Cranial nerves intact - Labs 12/26/18 05:01 12/26/18 05:01 Consult Discharge Plan - Plan Additional Instructions: Please go to Out Patient testing on 2018 around 0850M to get an x-ray done before you go see Dr. Pepper. The office is sending the order over to out patient testing at the [facility]. Referrals: Marvin Pepper MD [Partnered Physician] - 01/12/19 9:50 am NONE,PCP [Primary Care Provider] - (Patient doesn't want me to find him a PCP)
[2018-12-31] MEDS: Ipratropium/Albuterol Neb 3 ML IH SCH ×6 (04:21→23:52)
[2018-12-31] MEDS: *HR* Heparin 5,000 UNIT/ML VIAL SQ SCH ×3 (05:48→20:35)
[2018-12-31] MEDS: Famotidine 20 MG TABLET PO SCH ×2 (07:38→20:36)
[2018-12-31] MEDS: Gabapentin 300 MG CAPSULE PO SCH ×3 (07:39→20:37)
[2018-12-31] MEDS: Sennosides/Docusate Sodium TABLET PO SCH ×2 (07:39→20:36)
[2018-12-31] MEDS: *HR* HYDROcodone/Acet 5/325 mg TABLET PO PRN ×2 (11:05→20:36)
--- NOTE | 2018-12-31 12:28 | Cardiothoracic Progress Note ---
Date of Encounter: 12/31/18 Time of Encounter: 12:20 - Assessment and plan (1) Acute pneumothorax Current Visit: No Status: Acute The assessment and plan as outlined above was discussed with the patient and/or family members who expressed understanding and agreement. All questions were answered. xray stable. water seal. xray in the am. Vital Signs, Last 4 Hours Temp Pulse Resp BP Pulse Ox 12/31/18 11:28 18 98 12/31/18 11:14 98.4 F 84 18 114/69 96 Oxgyen Flow Rate Oxygen Flow Rate (LPM) 0 Clinical Data, last 8 Hours Output, Chest Tube Drainage 30 Amount [right anterior chest] Output, Chest Tube Drainage 10 Amount [right anterior chest] Output, Chest Tube Drainage 10 Amount [right anterior chest] Output, Urine Amount 500 Output, Urine Amount 400 Output, Urine Amount 600 Weight 12/29/18 12/30/18 12/31/18 23:59 23:59 23:59 Weight 72.5 kg 73 kg 71.9 kg - Physical Examination General: Conversant, No Apparent Distress, Well developed, Well nourished HEENT: Atraumatic, Normocephaly Cardiac: Reg Rate and Rhythm, Normal S1 and S2 Incision: No signs of infection, Dry/intact dressing, Open to air Chest tubes: Minimal drainage, Air leak, Crepitus Lungs: Normal Breath Sounds Neuro: Alert and responsive, No focal deficits noted, Cranial nerves intact, Motor nerves intact - Labs 12/26/18 05:01 12/26/18 05:01 Consult Discharge Plan - Plan Additional Instructions: Please go to Out Patient testing on 2018 around 0850M to get an x-ray done before you go see Dr. Pepper. The office is sending the order over to out patient testing at the [facility]. Referrals: Marvin Pepper MD [Partnered Physician] - 01/12/19 9:50 am NONE,PCP [Primary Care Provider] - (Patient doesn't want me to find him a PCP)
[2019-01-01] MEDS: Ipratropium/Albuterol Neb 3 ML IH SCH ×5 (04:03→20:02)
[2019-01-01] MEDS: *HR* Heparin 5,000 UNIT/ML VIAL SQ SCH ×3 (05:10→20:22)
[2019-01-01] MEDS: Sennosides/Docusate Sodium TABLET PO SCH ×2 (08:34→20:22)
[2019-01-01] MEDS: Gabapentin 300 MG CAPSULE PO SCH ×3 (08:34→20:22)
[2019-01-01] MEDS: Famotidine 20 MG TABLET PO SCH ×2 (08:34→20:22)
[2019-01-01] MEDS: *HR* HYDROcodone/Acet 5/325 mg TABLET PO PRN ×3 (10:45→20:22)
--- NOTE | 2019-01-01 14:43 | Cardiothoracic Progress Note ---
Date of Encounter: 01/01/19 Time of Encounter: 14:43 - Assessment and plan (1) Acute pneumothorax Current Visit: Yes Status: Acute The assessment and plan as outlined above was discussed with the patient and/or family members who expressed understanding and agreement. All questions were answered. discussed with patient the size of the pnth and persistent air leak. will place on schedule for surgery on saturday Vital Signs, Last 4 Hours Temp Pulse Resp BP Pulse Ox 01/01/19 12:44 98.3 F 106 18 117/75 92 Oxgyen Flow Rate Oxygen Flow Rate (LPM) 0 Clinical Data, last 8 Hours Output, Urine Amount 500 Output, Urine Amount 600 Weight 12/30/18 12/31/18 01/01/19 23:59 23:59 23:59 Weight 73 kg 71.9 kg 71.9 kg - Physical Examination General: Conversant, No Apparent Distress HEENT: Atraumatic, Normocephaly Cardiac: Reg Rate and Rhythm, Normal S1 and S2 Incision: No signs of infection Chest tubes: Minimal drainage, Air leak Lungs: Normal Breath Sounds - Labs 12/26/18 05:01 12/26/18 05:01 - Imaging Chest Xray: image reviewed Consult Discharge Plan - Plan Additional Instructions: Please go to Out Patient testing on 2018 around 0850M to get an x-ray done before you go see Dr. Pepper. The office is sending the order over to out patient testing at the main hospital. Referrals: Mravin Pepper MD [Partnered Physician] - 01/12/19 9:50 am NONE,PCP [Primary Care Provider] - (Patient doesn't want me to find him a PCP)
[2019-01-02] MEDS: Ipratropium/Albuterol Neb 3 ML IH SCH ×7 (00:13→23:54)
[2019-01-02] MEDS: *HR* Heparin 5,000 UNIT/ML VIAL SQ SCH ×3 (06:14→21:35)
[2019-01-02] MEDS: Famotidine 20 MG TABLET PO SCH ×2 (08:32→21:35)
[2019-01-02] MEDS: Sennosides/Docusate Sodium TABLET PO SCH ×2 (08:32→21:35)
[2019-01-02] MEDS: Gabapentin 300 MG CAPSULE PO SCH ×3 (08:32→21:35)
[2019-01-02] MEDS ORDERED: ceFAZolin 2,000 MG in Water for inj. (sterile) 20 ML IVP ONE (11:21)
--- NOTE | 2019-01-02 11:23 | Cardiothoracic Progress Note ---
Date of Encounter: 01/02/19 Time of Encounter: 11:21 - Assessment and plan (1) Acute pneumothorax Current Visit: Yes Status: Acute The assessment and plan as outlined above was discussed with the patient and/or family members who expressed understanding and agreement. All questions were answered. discussed with patient the size of the pnth and persistent air leak. will place on schedule for surgery on saturday. preop orders written (2) Acquired bronchopleural fistula Current Visit: Yes Status: Acute The assessment and plan as outlined above was discussed with the patient and/or family members who expressed understanding and agreement. All questions were answered. surgery tomorrow Vital Signs, Last 4 Hours Temp Pulse Resp BP Pulse Ox 01/02/19 08:30 98.2 F 98 24 118/74 97 01/02/19 07:59 24 97 01/02/19 07:55 98.2 F 98 16 118/74 97 Oxgyen Flow Rate Oxygen Flow Rate (LPM) 4 Clinical Data, last 8 Hours Output, Chest Tube Drainage 20 Amount [right anterior chest] Output, Chest Tube Drainage 20 Amount [right anterior chest] Output, Chest Tube Drainage 30 Amount [right anterior chest] Output, Urine Amount 0 Output, Urine Amount 750 Weight 12/31/18 01/01/19 01/02/19 23:59 23:59 23:59 Weight 71.9 kg 71.9 kg 68.9 kg - Physical Examination General: Conversant, No Apparent Distress HEENT: Atraumatic, Normocephaly Cardiac: Reg Rate and Rhythm, Normal S1 and S2 Incision: No signs of infection, Dry/intact dressing Chest tubes: Minimal drainage, Air leak Lungs: Normal Breath Sounds - Labs 12/26/18 05:01 12/26/18 05:01 Consult Discharge Plan - Plan Additional Instructions: Please go to Out Patient testing on 2018 around 0850M to get an x-ray done before you go see Dr. Pepper. The office is sending the order over to out patient testing at the [facility]. Referrals: Marvin Pepper MD [Partnered Physician] - 01/12/19 9:50 am NONE,PCP [Primary Care Provider] - (Patient doesn't want me to find him a PCP)
[2019-01-02] MEDS: *HR* HYDROcodone/Acet 5/325 mg TABLET PO PRN ×2 (13:05→21:35)
[2019-01-03] MEDS: Ipratropium/Albuterol Neb 3 ML IH SCH ×7 (03:48→23:40)
[2019-01-03] MEDS: *HR* Heparin 5,000 UNIT/ML VIAL SQ SCH ×3 (05:12→21:34)
--- NOTE | 2019-01-03 07:04 | Anesthesia Evaluation PreOp ---
Date of Encounter: 01/03/19 Time of Encounter: 07:09 - Past History Planned Operation: right robotic thoracoscopic expl Cardiac History: Denies any Significant Hx Pulmonary History: Former smoker, Other (L spontaneous pneumo, R spontaneous pneumo) TWILL CUTTER History: Denies Any Significant HX Other Medical History: Denies Any Significant HX Anesthesia History: No Prior Anesthetic Complications, Past Anesthesia Alcohol Use: occasionally Drug use: none Medications and Allergies OxyCODONE/APAP 5/325 [Percocet 5/325 MG] 1 tab PO Q6HR PRN 12/25/18 [History] 3 Allergy/AdvReac Type Severity Reaction Status Date / Time bee venom protein (honey bee) Allergy throat Verified 12/25/18 13:25 swelling - Meds/Allergy Pre-op Review Medications Reviewed: Yes Allergies Reviewed: Yes Beta Blockers on Current Med List: No Anesthesia Results - Labs 12/26/18 05:01 12/26/18 05:01 Anesthesia Exam Vital Signs/O2 Sat, Most Current Temp Pulse Resp BP Pulse Ox 98.3 F 100 20 119/81 93 01/03/19 03:56 01/03/19 05:05 01/03/19 03:56 01/03/19 03:56 01/03/19 03:56 - HEENT Pupil (Motor): EOMI Teeth: Missing, Poor dentition Oral Opening: Greater than 3 - TWILL CUTTER LOC: Oriented TWILL CUTTER Motor: Normal RUE, Normal LUE, Normal RLE, Normal LLE, Normal Face TWILL CUTTER Sensory: Normal: RUE, LUE, RLE, LLE, Face - Cardiac Rhythm: Regular Murmur: None JVD: No Carotid Bruit: No - Pulmonary Breath Sounds: bilateral Clear Respiratory Effort: Symmetrical Anesthesia Assess/Plan ASA Score: 2 Level of consciousness: Cooperative, Oriented Anesthetic Plan: General Monitoring Plan: Standard Monitors Recovery Plan: PACU
[2019-01-03] MEDS ORDERED: *HR* FentaNYL (PF) 100 MCG/2 ML VIAL ONE ×2 (07:09→08:24)
[2019-01-03] MEDS ORDERED: *HR* Midazolam HCl 2 MG/2 ML VIAL ONE (07:10)
[2019-01-03] MEDS ORDERED: *HR* Propofol 200 MG/20 ML VIAL IVP ONE (07:12)
[2019-01-03] MEDS ORDERED: Dexamethasone 4 MG/ML VIAL ONE (07:18)
[2019-01-03] MEDS ORDERED: *HR* Rocuronium Bromide 50 MG/5 ML VIAL ONE ×2 (07:18→08:24)
[2019-01-03] MEDS ORDERED: *HR* Succinylcholine 200 MG/10 ML VIAL IVP ONE (07:18)
[2019-01-03] MEDS ORDERED: EPHEDrine 50 MG/ML VIAL ONE (07:25)
[2019-01-03] MEDS ORDERED: ceFAZolin 2,000 MG in 0.9 % Sodium Chloride 100 ML IVPB ONE (08:00)
[2019-01-03] MEDS ORDERED: *HR* HYDROMORPHONE 2 MG/ML VIAL ONE (08:39)
--- NOTE | 2019-01-03 09:52 | Operative Note ---
Date of procedure: 01/03/19 Pre-op diagnosis: bp fistula j86.0 Post-op diagnosis: same Procedure: bronchoscopy, robotic right upper lobectomy, evacuation of hemothorax Anesthesia: RONNIE Surgeon: Marvin Pepper Was there an legal support assistant present: No Estimated blood loss (cc): 10 Specimen: right upper lobe Condition: stable Disposition: PACU Procedure in Detail: Patient was brought to the operating room and placed on the operating table in the supine position. After undergoing general anesthesia with sequential compressive devices on bilateral lower extremities and perioperative antibiotics on board, bronchoscopy was used to in small amounts of secretions were aspirated from the tracheobronchial tree until clear. Patient was placed on the operating table in the left lateral decubitus position with care to pad all pressure points. The previous chest tube removed. Patient was prepped and draped in the usual sterile fashion. The da Lisa robot was docked. Small amount fibrinous clot was removed from the chest totaling 150 mL. This allowed us to appreciate a tear in the lung tissue not To the staple line but down by the apical branch of the pulmonary artery. A former right upper lobectomy performed taking artery vein bronchus and fissure with endothoracic staplers. The chest was then filled with sterile water anesthesia ventilated the remaining right middle and lower lobes and there was no leak from either lobe nor the stump status post right upper lobectomy. The specimen was removed paravertebral nerve blocks performed and chest tube placed. While closing the incisions with 0 Vicryl and 4-0 Monocryl subcuticular stitches there was no air leak on the chest tube will anesthesia was ventilating the right middle and lower lobes. Patient was extubated in the operating room and taken to the recovery room.
[2019-01-03] MEDS ORDERED: *HR* Midazolam HCl 2 MG/2 ML VIAL IVP PRN (10:20)
[2019-01-03] MEDS ORDERED: *HR* Meperidine 25 MG/ML SYRINGE IVP PRN (10:20)
[2019-01-03] MEDS ORDERED: *HR* OxyCODONE Immed Rel 5 MG TABLET PO PRN (10:20)
[2019-01-03] MEDS: *HR* HYDROmorphone (PF) 1 MG/ML SYRINGE IVP PRN ×2 (10:28→10:35)
[2019-01-03] MEDS ORDERED: Ringers Solution, Lactated 1,000 ML IVC SCH (10:30)
--- NOTE | 2019-01-03 11:01 | Anesthesia Evaluation Post Op ---
Date of Encounter: 01/03/19 Time of Encounter: 11:00 - Vital Signs Vital Signs: Vital Signs/O2 Sat, Most Current Temp Pulse Resp BP Pulse Ox 99.4 F 102 48 156/106 99 01/03/19 10:30 01/03/19 10:50 01/03/19 10:50 01/03/19 10:50 01/03/19 10:50 - Lungs Lungs: Clear Ascult./Percussion - Airway Airway: Non-obstructed - Cardiovascular Regular Rate, Baseline Rhythm - Mental Status Mental Status: Asleep with brisk response to light stimulation - Pain Pain Scale: 0 - Nausea Vomiting Nausea Vomiting: Not Present - Hydration Hydration: NPO - Discharge PostOp Status: Transfer Patient to floor
[2019-01-03] MEDS ORDERED: Naloxone 0.4 MG/ML INJ IVP PRN (11:26)
[2019-01-03] MEDS ORDERED: CeFAZolin Syr 2,000MG/20 ML 2,000 MG/20 ML SYRINGE IVPB ONE (11:26)
[2019-01-03] MEDS: 0.9 % Sodium Chloride 1,000 ML IVC SCH (13:13)
[2019-01-03] MEDS: Gabapentin 300 MG CAPSULE PO SCH ×2 (13:14→21:33)
[2019-01-03] MEDS: *HR* HYDROcodone/Acet 5/325 mg TABLET PO PRN ×3 (13:14→21:34)
[2019-01-03] MEDS: Ondansetron 4 MG/2 ML VIAL IVP PRN (16:40)
[2019-01-03] MEDS: Ketorolac 15 MG/ML VIAL IVP SCH ×2 (17:00→23:45)
[2019-01-03] MEDS: Sennosides/Docusate Sodium TABLET PO SCH (21:33)
[2019-01-03] MEDS: Famotidine 20 MG TABLET PO SCH (21:34)
[2019-01-04] MEDS: 0.9 % Sodium Chloride 1,000 ML IVC SCH ×2 (02:29→15:48)
[2019-01-04] MEDS: Ipratropium/Albuterol Neb 3 ML IH SCH ×6 (03:39→23:39)
[2019-01-04] MEDS: Ketorolac 15 MG/ML VIAL IVP SCH ×4 (05:08→23:42)
[2019-01-04] MEDS: *HR* Heparin 5,000 UNIT/ML VIAL SQ SCH ×3 (05:08→20:25)
[2019-01-04] MEDS: Famotidine 20 MG TABLET PO SCH ×2 (08:28→20:24)
[2019-01-04] MEDS: Gabapentin 300 MG CAPSULE PO SCH ×3 (08:29→20:25)
[2019-01-04] MEDS: *HR* HYDROcodone/Acet 5/325 mg TABLET PO PRN ×2 (08:29→20:25)
[2019-01-04] MEDS: Sennosides/Docusate Sodium TABLET PO SCH ×2 (08:29→20:25)
--- NOTE | 2019-01-04 11:07 | Cardiothoracic Progress Note ---
Date of Encounter: 01/04/19 Time of Encounter: 11:02 - Assessment and plan (1) Acute pneumothorax Current Visit: Yes Status: Acute The patient is recovering well from his robotic right apical bleb resection and chemical pleurodesis and subsequent robotic right upper lobe resection. He has no air leak today. The chest x-ray will be repeated in the morning. The assessment and plan as outlined above was discussed with the patient and/or family members who expressed understanding and agreement. All questions were answered. - Subjective Procedure(s) Performed: POD#10 S/P Right robotic apical bleb resection and chemical pleurodesis POD#1 S/P Robotic right upper lobe resection Interval history: The patient remained hemodynamically stable overnight. He is resting comfortably in his hospital bed. He has no complaints. Vital Signs, Last 4 Hours Temp Pulse Resp BP Pulse Ox 01/04/19 08:20 98.8 F 108 16 122/86 96 01/04/19 07:53 16 96 01/04/19 07:10 98.8 F 108 18 122/86 98 Oxgyen Flow Rate Oxygen Flow Rate (LPM) 2 Clinical Data, last 8 Hours Output, Chest Tube Drainage 40 Amount [right anterior chest] Output, Chest Tube Drainage 40 Amount [right anterior chest] Output, Chest Tube Drainage 0 Amount [right anterior chest] Output, Urine Amount 0 Output, Urine Amount 600 Weight 01/02/19 01/03/19 01/04/19 23:59 23:59 23:59 Weight 68.9 kg 66.7 kg 67.6 kg - Physical Examination General: Conversant, No Apparent Distress Neck: No JVD, Normal carotid pulses Cardiac: Reg Rate and Rhythm, Normal S1 and S2, No Murmur Incision: No signs of infection, Dry/intact dressing Chest tubes: Minimal drainage, Other (No air leak) Lungs: Normal Breath Sounds, No Wheeze, Rales, Rhonchi Neuro: Alert and responsive, No focal deficits noted Vascular: Normal capillary refill Extremities: No Clubbing, No Cyanosis, No Edema - Labs 12/26/18 05:01 12/26/18 05:01 Consult Discharge Plan - Plan Additional Instructions: Please go to Out Patient testing on 2018 around 0850M to get an x-ray done before you go see Dr. Pepper. The office is sending the order over to out patient testing at the main hospital. Referrals: Marvin Pepper MD [Partnered Physician] - 01/12/19 9:50 am NONE,PCP [Primary Care Provider] - (Patient doesn't want me to find him a PCP)
[2019-01-04] MEDS: Ondansetron 4 MG/2 ML VIAL IVP PRN (17:24)
[2019-01-05] MEDS: Ipratropium/Albuterol Neb 3 ML IH SCH ×3 (03:53→11:20)
[2019-01-05] MEDS: 0.9 % Sodium Chloride 1,000 ML IVC SCH (05:22)
[2019-01-05] MEDS: Ketorolac 15 MG/ML VIAL IVP SCH (05:22)
[2019-01-05] MEDS: *HR* Heparin 5,000 UNIT/ML VIAL SQ SCH (05:22)
[2019-01-05] MEDS: Famotidine 20 MG TABLET PO SCH (08:10)
[2019-01-05] MEDS: Gabapentin 300 MG CAPSULE PO SCH (08:10)
--- NOTE | 2019-01-05 08:58 | Cardiothoracic Progress Note ---
Date of Encounter: 01/05/19 Time of Encounter: 08:57 - Assessment and plan (1) Acute pneumothorax Current Visit: Yes Status: Acute The assessment and plan as outlined above was discussed with the patient and/or family members who expressed understanding and agreement. All questions were answered. rounded with nurse. clamp chest tube and xray at noon. (2) Acquired bronchopleural fistula Current Visit: Yes Status: Acute The assessment and plan as outlined above was discussed with the patient and/or family members who expressed understanding and agreement. All questions were an swered. surgery tomorrow Vital Signs, Last 4 Hours Temp Pulse Resp BP Pulse Ox 01/05/19 08:18 98.6 F 113 18 127/73 99 01/05/19 07:16 18 94 Oxgyen Flow Rate Oxygen Flow Rate (LPM) 2 Weight 01/03/19 01/04/19 01/05/19 23:59 23:59 23:59 Weight 66.7 kg 67.6 kg 62.9 kg - Physical Examination General: Conversant, No Apparent Distress, Well developed, Well nourished HEENT: Atraumatic, Normocephaly Neck: No JVD Cardiac: Reg Rate and Rhythm, Normal S1 and S2 Incision: No signs of infection, Dry/intact dressing Chest tubes: Minimal drainage Lungs: Normal Breath Sounds Neuro: Alert and responsive, No focal deficits noted, Cranial nerves intact, Motor nerves intact - Labs 12/26/18 05:01 12/26/18 05:01 - Imaging Chest Xray: image reviewed Consult Discharge Plan - Plan Additional Instructions: Please go to Out Patient testing on 2018 around 0850M to get an x-ray done before you go see Dr. Pepper. The office is sending the order over to out patient testing at the [facility]. Referrals: Marvin Pepper MD [Partnered Physician] - 01/12/19 9:50 am NONE,PCP [Primary Care Provider] - (Patient doesn't want me to find him a PCP)
[2019-01-05 11:47] VITALS: BP 129/83
[2019-01-05] MEDS: Sennosides/Docusate Sodium TABLET PO SCH (12:00)
[2019-01-05] MEDS: *HR* HYDROcodone/Acet 5/325 mg TABLET PO PRN (12:00)
--- NOTE | 2019-01-05 12:12 | Discharge Summary ---
Orders not resulted at time of discharge: Pending orders 01/03/19 10:04 Surgical Pathology [PTH] Routine Date of Encounter: 01/05/19 Time of Encounter: 12:10 - Discharge Diagnosis (1) Acute pneumothorax Priority: Primary Status: Acute (2) Acquired bronchopleural fistula Priority: Primary Status: Acute - Hospital Course Hospital course: Mr. Granger is a 33 year old male - Time Spent with Patient Total time spent providing and/or coordinating discharge services: - Discharge Medications Prescriptions: No Action OxyCODONE/APAP 5/325 [Percocet 5/325 MG] 1 tab PO Q6HR PRN PRN Reason: Pain Home Medications: OxyCODONE/APAP 5/325 [Percocet 5/325 MG] 1 tab PO Q6HR PRN 12/25/18 [History] Allergies/Adverse Reactions: Allergy/AdvReac Type Severity Reaction Status Date / Time bee venom protein (honey bee) Allergy throat Verified 12/25/18 13:25 swelling Date of admission: 12/25/18 17:17 Primary care physician: PCP NONE Consults: none Procedure(s) Performed: bronchoscopy, right robotic wedge, right upper lobectomy, Discharging clinician: Marvin Pepper Anticipated date of discharge: 01/05/19 Physical Examination Vital Signs, Last 4 Hours Temp Pulse Resp BP Pulse Ox 01/05/19 11:45 98.9 F 109 18 129/83 96 01/05/19 11:24 16 96 01/05/19 08:18 98.6 F 113 18 127/73 99 General: Conversant, No Apparent Distress HEENT: Atraumatic, Normocephaly Neck: No JVD Cardiac: Reg Rate and Rhythm, Normal S1 and S2 Lungs: Normal Breath Sounds Neuro: Alert and responsive, No focal deficits noted, Cranial nerves intact, Motor nerves intact Abdomen: Soft - Patient Status Disposition: Home, Self-Care Condition: Good Functional capacity at discharge: independent ambulation Overall status at discharge: patient is progressing back to baseline - Discharge Instructions Follow Up With: Marvin Pepper MD [Partnered Physician] - 01/12/19 9:50 am NONE,PCP [Primary Care Provider] - (Patient doesn't want me to find him a PCP) - Diet and Activity Activity: other (remove gauzes on . no driving if taking pain medications ) Diet: advance to your usual diet
== END 2019-01-05 13:36 | disposition home or self-care (01) | DRG 164 ==
LOC: SAMDAY 13:00 → 2NNU 17:17
PROVIDERS: ADMIT Thoracic Surgery (Cardiothoracic Vascular Surgery); ATTEND Thoracic Surgery (Cardiothoracic Vascular Surgery)